=== PATIENT | female | born 1945 | race Caucasian/White ===

== ENCOUNTER → 2016-12-30 | Outpatient (CLI) | payer MEDICARE ==
--- NOTE | 2016-12-31 14:25 | MM ---
Reason for exam: screening (asymptomatic). Last mammogram was performed 1 year and 8 months ago. History: Patient is postmenopausal. Taking estrogen for 13 years beginning at age 51. Physical Findings: A clinical breast exam by your physician is recommended on an annual basis and results should be correlated with mammographic findings. MG 3D Screening Mammo W/Cad Bilateral CC and MLO view(s) were taken. Prior study comparison: April 17, 2015, bilateral MG screening mammo w CAD. January 15, 2014, left diagnostic mammogram w/CAD. The breast tissue is heterogeneously dense. This may lower the sensitivity of mammography. Finding: There are typically benign calcifications in both breasts. No significant changes in finding since April 17, 2015 and January 15, 2014. ASSESSMENT: Benign, BI-RAD 2 RECOMMENDATION: Routine screening mammogram of both breasts in 1 year.
== END ==
LOC: RADMAMWWP 11:10
PROVIDERS: ATTEND Obstetrics & Gynecology
DX: Z12.31 Encounter for screening mammogram for malignant neoplasm of breast (principal)
CPT/HCPCS: 77063; G0202

== ENCOUNTER → 2019-11-02 | Outpatient (CLI) | payer MEDICARE ==
--- NOTE | 2019-11-06 09:22 | MM ---
Reason for exam: screening (asymptomatic). Last mammogram was performed 2 years and 10 months ago. History: Patient is postmenopausal. Taking estrogen for 13 years beginning at age 51. Physical Findings: A clinical breast exam by your physician is recommended on an annual basis and results should be correlated with mammographic findings. MG 3D Screening Mammo W/Cad Bilateral CC and MLO view(s) were taken. Prior study comparison: December 30, 2016, bilateral MG 3d screening mammo w/cad. April 17, 2015, bilateral MG screening mammo w CAD. The breast tissue is heterogeneously dense. This may lower the sensitivity of mammography. Dense subareolar tissues on a background of scattered densities. Grouped calcifications associated with the density on the left is unchanged. No significant changes when compared with prior studies. ASSESSMENT: Benign, BI-RAD 2 RECOMMENDATION: Routine screening mammogram of both breasts in 1 year.
== END ==
LOC: RADMAMWWP 13:28
PROVIDERS: ATTEND Family Medicine
DX: Z12.31 Encounter for screening mammogram for malignant neoplasm of breast (principal)
CPT/HCPCS: 77063; 77067

== ENCOUNTER → 2021-08-29 | Outpatient (CLI) | payer MEDICARE ==
--- NOTE | 2021-09-01 13:43 | MM ---
Reason for exam: screening (asymptomatic). Last mammogram was performed 1 year and 10 months ago. History: Patient is postmenopausal. Took hormonal contraceptives for 5 years. Took estrogen for 13 years beginning at age 51. Physical Findings: A clinical breast exam by your physician is recommended on an annual basis and results should be correlated with mammographic findings. MG 3D Screening Mammo W/Cad Bilateral CC and MLO view(s) were taken. Prior study comparison: November 02, 2019, bilateral MG 3d screening mammo w/cad. December 30, 2016, bilateral MG 3d screening mammo w/cad. April 17, 2015, bilateral MG screening mammo w CAD. There are scattered fibroglandular densities. Increasing regional subareolar left breast calcifications. Additional magnification views recommended. ASSESSMENT: Incomplete: need additional imaging evaluation, BI-RAD 0 RECOMMENDATION: Special view mammogram of the left breast. (magnification) [facility] will attempt to contact patient to return for supplemental views.
== END | disposition home or self-care (01) ==
LOC: RADMAMWWP 14:58
PROVIDERS: ATTEND Family Medicine
DX: Z12.31 Encounter for screening mammogram for malignant neoplasm of breast (principal); Z78.0 Asymptomatic menopausal state
CPT/HCPCS: 77063; 77067

== ENCOUNTER → 2021-09-03 | Outpatient (CLI) | payer MEDICARE ==
--- NOTE | 2021-09-04 10:22 | MM ---
Reason for exam: additional evaluation requested from abnormal screening. Last mammogram was performed less than 1 month ago. History: Patient is postmenopausal. Took hormonal contraceptives for 5 years. Took estrogen for 13 years beginning at age 51. Physical Findings: Nurse did not find any significant physical abnormalities on exam. MG 3D Work Up W/Cad LT CC with magnification, LM with magnification, and ML view(s) were taken of the left breast. Prior study comparison: August 29, 2021, bilateral MG 3d screening mammo w/cad. November 02, 2019, bilateral MG 3d screening mammo w/cad. There are scattered fibroglandular densities. 12 o'clock central anterior left breast microcalcifications, some punctate and some heterogeneous. Biopsy recommended. These results were verbally communicated with the patient and result sheet given to the patient on 09/03/21. ASSESSMENT: Suspicious, BI-RAD 4 RECOMMENDATION: Stereotactic core biopsy of the left breast. Called Dr. Toney office with mammographic findings. Per office, patient to call next week for appointment date and time. Biopsy scheduled for 09/15/21 at 8:00. PRELIMINARY REPORT CALLED AND FAXED TO DR. TONEY ON 09/04/21.
== END | disposition home or self-care (01) ==
LOC: RADMAMWWP 08:57
PROVIDERS: ATTEND Family Medicine
DX: R92.1 Mammographic calcification found on diagnostic imaging of breast (principal); Z78.0 Asymptomatic menopausal state
CPT/HCPCS: 77065; G0279; 77061

== ENCOUNTER → 2021-09-15 | Day surgery (SDC) | payer MEDICARE ==
[2021-09-15 09:03] VITALS: BP 121/74; PULSE 52; RESP 16; TEMP 97.7
--- NOTE | 2021-09-15 19:04 | MM ---
EXAMINATION TYPE: MG stereo VAD BX LT DATE OF EXAM: 09/15/2021 COMPARISON: 09/03/2021, 08/29/2021 CLINICAL HISTORY: 75-year-old female referred for stereotactic core needle biopsy of left breast microcalcifications TECHNIQUE: Stereotactic guided core biopsy of the left breast. FINDINGS: The procedure of stereotactic guided core biopsy was explained to the patient. Benefits, alternatives, and risks were discussed. An informed consent was then obtained. The 12:00 left breast microcalcifications were identified and targeted biopsy. [facility]. Shortness pathway was a CC from above approach. I performed the localization followed by the remainder of the procedure. A vacuum assisted biopsy gun was used to obtain 5 core samples. The patient tolerated the procedure well without any immediate complication. The patient was kept in the radiology department for short stay after the procedure and then discharged home in stable condition. Targeted calcifications are identified in specimen mammogram. Post biopsy mammogram shows the clip to appear in satisfactory position relative to the targeted area of concern on the preprocedure images. IMPRESSION: SUCCESSFUL, UNCOMPLICATED STEREOTACTIC GUIDED CORE BIOPSY OF INDETERMINATE 12:00 LEFT BREAST MICROCALCIFICATIONS. FULL PATHOLOGY RESULTS TO FOLLOW. Pathology Results: Malignant LEFT BREAST, STEREOTACTIC CORE BIOPSY: Microinvasive well differentiated ductal carcinoma, focal flat epithelial atypia (FEA/ADH) with calcifications and background fibrocystic changes. See Surgical Pathology Cancer Case Summary and Comment. Recommendation Surgical consult of the left breast. A punctate residual calcification remains to confirm biopsy site. MTDD
== END ==
LOC: RADMAMWWP 06:58
PROVIDERS: ATTEND Family Medicine
DX: N60.12 Diffuse cystic mastopathy of left breast (principal)
CPT/HCPCS: 88305; 88342; 88341; 19081; A4648; J2001

== ENCOUNTER → 2022-04-02 | Outpatient (CLI) | payer MEDICARE ==
--- NOTE | 2022-04-02 23:02 | BD ---
EXAMINATION TYPE: Axial Bone Density DATE OF EXAM: 04/02/2022 COMPARISON: NONE CLINICAL HISTORY: 76 years year old Female. ICD-10 CODE: N95.1 POST MENOPAUSAL SYMPTOMS Height: 58 IN Weight: 148 LBS RISK FACTORS HISTORY OF: Active: LIMITED Postmenopausal woman: TOTAL HYST AGE 52 Take estrogen and/or progesterone medications: NOT NOW How long: TOOK FOR 2 YEARS Lost more than 2 inches in height since high school: YES 3" MEDICATIONS: Additional Medications: LIPITOR, MULTI VIT, TUMERIC, GLUCOSAMINE CHONDROITIN Additional History: BREAST CANCER EXAM MEASUREMENTS: Bone mineral densitometry was performed using the Tasqe System. Bone mineral density as measured about the Lumbar spine is: ----- L1-L4(G/cm2): 1.145 T Score Values are as follows: ----- L1: 1.1 ----- L2: -0.3 ----- L3: -0.4 ----- L4: -1.6 ----- L1-L4: -0.3 Bone mineral density BASELINE Bone mineral density about the R hip (g/cm2): 0.867 Bone mineral density about the L hip (g/cm2): 1.008 T Score values are as follows: -----R Neck: -1.2 -----L Neck: -0.2 -----R Total: -1.3 -----L Total: -0.7 Bone mineral density BASELINE FRAX%s: The graph provided illustrates a 9.9 chance for a major osteoporotic fx and a 1.6 chance for the hips probability for fx in 10 years time. IMPRESSION: Osteopenia (T Score between -2.5 and -1). There is slightly increased risk of fracture and the patient may be considered for treatment. Re-Screen 2-5 years. NOTE: T-SCORE=SD OF THE YOUNG ADULT MEAN.
== END | disposition home or self-care (01) ==
LOC: RADBDWWP 14:38
PROVIDERS: ATTEND Internal Medicine Hematology & Oncology
DX: M85.89 Other specified disorders of bone density and structure, multiple sites (principal); Z78.0 Asymptomatic menopausal state
CPT/HCPCS: 77080

== ENCOUNTER → 2022-09-14 | Outpatient (CLI) | payer MEDICARE ==
--- NOTE | 2022-09-15 11:55 | MM ---
Reason for Exam: Screening (asymptomatic). Last mammogram was performed 1 year(s) and 1 month(s) ago. Patient History: Menarche at age 14. First Full-Term at age 31. Left ovary removed at age 51. Right ovary removed at age 51. Hysterectomy at age 51. Postmenopausal. Breast cancer, left, age 75. Estrogen for 13 years from age 51 until age 64. Patient used Hormonal Contraceptives for 5 years. 11/2021, MG pre op needle loc LT - 2 on the Left side. 09/15/2021, Malignant Core Biopsy on the left side. Prior Study Comparison: 11/02/2019 Bilateral Screening Mammogram, [facility]. 08/29/2021 Bilateral Screening Mammogram, [facility]. 09/03/2021 Left Diagnostic Mammogram, [facility]. Tissue Density: The breast tissue is heterogeneously dense. This may lower the sensitivity of mammography. Findings: Analyzed By CAD. Loosely grouped tiny benign-appearing round calcifications are redemonstrated bilaterally. There is new biopsy clip and distortion with surgical clips anteriorly in the left breast. There is no suspicious new group of microcalcifications or new suspicious mass in either breast. Overall Assessment: Probably benign, BI-RAD 3 Management: Diagnostic Mammogram of the left breast in 6 months. Current left breast mammogram serves as new baseline after treatment for neoplasm September 2021. Precautionary six-month follow-up advised on the left. Electronically signed and approved by: Doc Guerin M.D.
== END | disposition home or self-care (01) ==
LOC: RADMAMWWP 16:07
PROVIDERS: ATTEND Family Medicine
DX: Z12.31 Encounter for screening mammogram for malignant neoplasm of breast (principal)
CPT/HCPCS: 77063; 77067

== ENCOUNTER → 2023-03-24 | Outpatient (CLI) | payer MEDICARE ==
--- NOTE | 2023-03-24 09:23 | MM ---
Reason for Exam: Hx of breast cancer, conservation therapy. Last screening mammogram was performed 6 month(s) ago. Patient History: Menarche at age 14. First Full-Term at age 31. Left ovary removed at age 51. Right ovary removed at age 51. Hysterectomy at age 51. Postmenopausal. Breast cancer, left, age 75. Estrogen for 13 years from age 51 until age 64. Patient used Hormonal Contraceptives for 5 years. 11/2021, MG pre op needle loc LT - 2 on the Left side. 09/15/2021, Malignant Core Biopsy on the left side. Tissue Density: There are scattered fibroglandular densities. Findings: Analyzed By CAD. Left breast posttreatment changes. Multiple surgical clips are seen in the axilla and breast itself. No new suspicious masses, calcifications or distortions. Overall Assessment: Benign, BI-RAD 2 Management: Screening Mammogram of both breasts in 1 year. Results were given to the patient verbally at the time of exam. Patient should continue monthly self-breast exams. A clinical breast exam by your physician is recommended on an annual basis. This exam should not preclude additional follow-up of suspicious palpable abnormalities. Note on Crys scores and lifetime risk: 1. A Crys score greater than 3% is considered moderate risk. If this is the case, consider specialist referral to assess eligibility for a risk reducing agent. 2. If overall lifetime risk for the development of breast cancer is 20% or higher, the patient may qualify for future screening with alternating mammogram and breast MRI. Electronically signed and approved by: Benitez Nathan DO
== END | disposition home or self-care (01) ==
LOC: RADMAMWWP 08:52
PROVIDERS: ATTEND Internal Medicine Hematology & Oncology
DX: C50.112 Malignant neoplasm of central portion of left female breast (principal); Z78.0 Asymptomatic menopausal state; Z85.3 Personal history of malignant neoplasm of breast; Z90.721 Acquired absence of ovaries, unilateral
CPT/HCPCS: 77066; G0279; 77062

== ENCOUNTER → 2023-11-26 | Outpatient (CLI) | payer MEDICARE ==
[2023-11-26 14:59] LABS: Partial Thromboplastin Time 24.2 sec (22.0-30.0); Prothrombin Time 10.6 sec (10.0-12.5)
[2023-11-26 18:36] LABS: Basophils # (A) 0.07 X 10*3/uL (0.00-0.10); Basophils % (A) 0.8 %; Eosinophils # (A) 0.35 X 10*3/uL (0.04-0.35); Eosinophils % (A) 3.9 %; HCT 44.4 % (37.2-50.0); HGB 14.7 g/dL (12.0-17.0); Lymphocytes # (A) 3.32 X 10*3/uL (0.90-5.00); Lymphocytes % (A) 36.7 %; MCH 28.6 pg (27.0-32.0); MCHC 33.1 g/dL (32.0-37.0); MCV 86.4 FL (80.0-97.0); Mean Platelet Volume 10.7 FL (9.5-12.2); Monocytes # (A) 0.74 X 10*3/uL (0.20-1.00); Monocytes % (A) 8.2 %; NRBC Per 100 WBC 0 X 10*3/uL (0.00-0.01); Neutrophils # (A) 4.54 X 10*3/uL (1.80-7.70); Neutrophils % (A) 50.2 %; Platelet Count 367 X 10*3/uL (140-440); RBC 5.14 X 10*6/uL (4.10-5.60); RDW 16.2 % (11.5-14.5); WBC 9.04 X 10*3/uL (4.50-10.00)
[2023-11-26 18:51] LABS: ALT 18 U/L (8-49); AST 17 U/L (13-35); Albumin 4.5 g/dL (3.8-4.9); Albumin/Globulin Ratio 1.73 Ratio (1.60-3.17); Alkaline Phosphatase 81 U/L (41-126); Carbon Dioxide 24.5 mmol/L (21.6-31.8); Chloride 103 mmol/L (96-109); Globulin 2.6 g/dL (1.6-3.3); Glucose 84 mg/dL (70-110); Potassium 4.6 mmol/L (3.5-5.5); Sodium 139 mmol/L (135-145); Total Bilirubin 0.3 mg/dL (0.3-1.2); Total Protein 7.1 g/dL (6.2-8.2)
== END | disposition home or self-care (01) ==
LOC: LABPAT 13:47
PROVIDERS: ATTEND Orthopaedic Surgery
DX: Z01.818 Encounter for other preprocedural examination (principal); I44.7 Left bundle-branch block, unspecified; M16.11 Unilateral primary osteoarthritis, right hip; Z22.322 Carrier or suspected carrier of Methicillin resistant Staphylococcus aureus; R94.31 Abnormal electrocardiogram [ECG] [EKG]
CPT/HCPCS: 80053; 85025; 85610; 85730; 86850; 86900; 86901; 87070; 93005

== ENCOUNTER 2023-12-07 05:40 | Observation (INO) | payer MEDICARE ==
[~2023-12-07 05:40] MED LIST: LIDOCAINE 1% (10MG/ML) FOR IV START INTRADERMA PRN; TRANEXAMIC 1,000 MG/100ML-NACL 1,000 MG in SALINE 1 100ML.BAG IVPB PRN
[2023-12-07] MEDS: GABAPENTIN 300 MG CAP PO PRN (06:27)
[2023-12-07] MEDS: ONDANSETRON 4 MG/2 ML VIAL IVP ONE (06:27)
[2023-12-07] MEDS: MELOXICAM 7.5 MG TAB PO PRN (06:27)
[2023-12-07] MEDS: ACETAMINOPHEN TAB 500 MG TAB PO PRN (06:27)
[2023-12-07] MEDS: LACTATED RINGERS 1,000 ML IV SCH (06:27)
[2023-12-07] MEDS: MIDAZOLAM 2 MG/2 ML VIAL IVP ONE (06:35)
[2023-12-07] MEDS: fentaNYL (PF) 50 MCG/ML 2 ML AMP IVP ONE (06:41)
[2023-12-07] MEDS ORDERED: PHENYLEPHRINE-0.9% NACL SYG 1,000 MCG/10 ML SYRINGE ONE (06:53)
[2023-12-07] MEDS ORDERED: TRANEXAMIC 1,000 MG/100ML-NACL PREMIX BAG ONE (06:53)
[2023-12-07] MEDS ORDERED: ePHEDrine 50 MG/ML 1 ML VIAL ONE (06:53)
[2023-12-07] MEDS ORDERED: ROPIVACAINE 5 MG/ML 30 ML VIAL ONE (06:53)
[2023-12-07] MEDS ORDERED: PROPOFOL 10 MG/ML 20 ML VIAL IV ONE (06:53)
[2023-12-07] MEDS ORDERED: MIDAZOLAM 2 MG/2 ML VIAL ONE (06:53)
[2023-12-07] MEDS ORDERED: fentaNYL (PF) 50 MCG/ML 2 ML AMP ONE (06:53)
[2023-12-07] MEDS ORDERED: DEXAMETHASONE SOD PHOSPHATE 4 MG/ML 1 ML VIAL ONE (06:53)
[2023-12-07] MEDS: ceFAZolin 1,000 MG in SODIUM CHLORIDE 0.9% 1,000 ML IRRIGATION ONE (06:58)
[2023-12-07] MEDS ORDERED: HYDROmorphone 0.5 MG/0.5 ML SYRINGE IVP PRN ×3 (07:00→08:42)
[2023-12-07] MEDS: ROPIVACAINE 5 MG/ML 30 ML VIAL MISCELLANE ONE ×2 (07:32→08:07)
--- NOTE | 2023-12-07 08:17 | P.OP ---
Date of Procedure: 12/07/23 Preoperative Diagnosis: Severe osteoarthritis right hip Postoperative Diagnosis: Severe osteoarthritis right hip Procedure(s) Performed: Right total hip arthroplasty with a direct anterior approach Implants: [employer] Polarstem standard size 2 with a collar [employer] R3, 3 hole hemispherical acetabular shell, 52 mm [employer] Reflection 6.5 mm cancellus screw, 20 mm 2 [employer] R3, XLPE 20 acetabular liner [employer] Oxinium femoral head 36 mm, -3 All components were press-fit. The articulation is Oxinium on polyethylene. Anesthesia: spinal Surgeon: Chas May Senior Programmer #1: Alejandra Lopez Estimated Blood Loss (ml): 400 Pathology: none sent Condition: stable Disposition: PACU Indications for Procedure: After failure of conservative treatment we discussed the surgical and nonsu rgical treatment options at length. Patient wishes to proceed with a total hip arthroplasty with a direct anterior approach. Complications specific to this procedure were discussed at length, including but not limited to infection, leg length discrepancy, dislocation, nerve injury, and fracture. Covid-19 was also discussed at length with the patient, and they are aware of the current policies and procedures. The patient was given the option of delaying surgery, but they elect to proceed knowing these risks. Patient is aware of all these complications and informed consent was obtained Operative Findings: The operative findings are consistent with severe osteoarthritis of the right hip Description of Procedure: The patient was seen and evaluated in the preoperative area and the consent was reviewed. The operative site was marked with a skin marker. The patient verified the procedure and operative site. A NARESH block was placed by anesthesia in the preoperative area. The patient was then brought to the operating room and given preoperative antibiotics intravenously. 1 g of Tranexamic acid was also given intravenously. A spinal anesthetic was administered by the anesthesia department. The patient was then placed on the Milan table with the bony prominences well-padded. The hip area was then prepped with a ChloraPrep solution and draped in the usual sterile fashion. A universal timeout was then performed, which confirmed the patient's name, surgical site, ALLERGIES, and procedure being performed on the consent. Next the incision site was located at 1 cm distal and 4 cm lateral to the anterior superior iliac spine. The skin and subcutaneous tissues were sharply incised. Incision was carefully dissected down to the fascia overlying the tensor fascia edi muscle. This fascia was then incised in line with the muscle fibers. Care was taken to stay laterally in order to avoid injuring the lateral femoral cutaneous nerve. Next, using blunt finger dissection, the tensor fascia edi muscle was dissected off its investing fascia. The muscle was then carefully retracted laterally with a cobra retractor over the lateral neck of the femur. Next, the circumflex vessels were identified and cauterized using the Aquamantis device. The anterior hip capsule was then exposed. The capsule was then opened and an inverted T fashion. The retractors were then placed intracapsularly. The retractors were maintained intracapsular throughout the procedure. The proximal femur was then visualized. Fluoroscopic x-rays were then taken in order to evaluate the preoperative leg lengths. A small amount of traction was placed on the leg. The femoral neck was then osteotomized at the appropriate level above the lesser trochanter. A small wedge of bone was then removed from the remaining femoral head. Next, using a corkscrew the femoral head was removed from the acetabulum. On gross visual inspection, the femoral head had complete loss of articular cartilage and multiple periarticular osteophytes. The femoral head was then measured. Attention was then turned to the acetabulum. The acetabulum was exposed and any remaining labrum was excised. Sequential reaming of the acetabulum was performed using fluoroscopic guidance until there was a good bed of bleeding cancellus bone. When the appropriate size was reached, a trial was then placed. The position and fit of the trial was checked with fluoroscopy. The trial was then removed. Then, using fluoroscopic guidance, the final implant was impacted at 20 of anteversion and 40 of abduction, and fully seated in the acetabulum. 2 screws were then placed in the acetabulum. Again fluoroscopy was used to check position of the screws. Next, the liner was then impacted, with a 20 elevated liner located in the anterior superior quadrant. Component locking was confirmed. Attention was then directed to the femur. With the aid of the Milan table, the femur was externally rotated to approximately 130, extended, and adducted under the opposite leg. A side hook was then placed under the proximal femur, and the side hook elevator was used to elevate the proximal femur while releasing the capsule. Retractors were then placed. A capsular release was performed, as well as a release of the conjoined tendon, which afforded excellent v isualization of the proximal femur. Next, a box osteotome was used to lateralize the proximal femur. A wood handler was then used to locate the femoral canal. Sequential broaching was then performed with appropriate size which afforded excellent fixation in the proximal femur. A trial was then placed with appropriate head and neck, and the hip was gently reduced with the aid of the Milan table. Fluoroscopy was then used to check position of the components, as well as to evaluate the leg lengths and offset. The leg lengths and offset were measured as closely as possible to ensure stability of the hip. The hip was then gently dislocated and the trials were then removed. Final implants were then impacted and the hip was again reduced. Final fluoroscopic x-rays confirmed that the components were in anatomic position. The leg lengths and offset were measured and were found to coincide with the trial measurements. The hip was also taken through range of motion, and found to be stable. The hip was then copiously irrigated with antibiotic solution with pulsatile lavage. The hip was then irrigated with Irrisept solution. The soft tissues were then injected with a ropivacaine solution. A second dose of 1 g of Tranexamic acid was also given intravenously. The fascia was then closed with 2-0 strata fix suture. The subcutaneous tissue was closed with 3-0 Vicryl. The subcuticular tissue was closed with 3-0 strata fix suture. The skin was then closed with Exofin skin glue. After the glue and dried, and Optifoam silver impregnated dressing was applied. The patient was t hen transferred to the recovery room in stable condition. The payroll assistant AUGUSTUS Bruce was required due to the complexity of surgery, and the need for skilled medical surgical tech for positioning, draping, exposure, retraction, and closure of the wound.
--- NOTE | 2023-12-07 08:31 | XR ---
EXAMINATION TYPE: XR Hip Limited RT DATE OF EXAM: 12/07/2023 COMPARISON: NONE HISTORY: Postop TECHNIQUE: 5 view submitted. FINDINGS: There is postsurgical change compatible hip replacement surgery. IMPRESSION: 1. Postoperative change.
--- NOTE | 2023-12-07 08:35 | P.ANPRN ---
Procedure Note - Anesthesia - Nerve Block Performed Right Sanchez Single Time Out Performed: Yes Date of Procedure: 12/07/23 Procedure Start Time: 06:34 Procedure Stop Time: 06:42 Location of Patient: PreOp Indication: Acute Post-Operative Pain, Requested by Surgeon Sedation Type: Sedate with meaningful contact maintained Preparation: Sterile Prep Position: Supine Needle Types: Pajunk Ultrasound used to visualize needle placement: Yes Ultrasound used to observe medication spread: Yes Injectate: 0.5% Ropivacaine (see comment for volume) (25 ml + 4 mg Dexamethasone) Blood Aspirated: No Pain Paresthesia on Injection Noted: No Resistance on Injection: Normal Image Stored and Saved: Yes Events: Uneventful and Well Tolerated
[2023-12-07] MEDS ORDERED: NALOXONE 0.4 MG/ML 1 ML VIAL IV PRN (08:42)
[2023-12-07] MEDS ORDERED: ONDANSETRON 4 MG/2 ML VIAL IVP PRN (08:42)
[2023-12-07] MEDS ORDERED: MAGNESIUM HYDROXIDE 2,400 MG/30 ML CUP PO PRN (08:42)
[2023-12-07] MEDS: LACTATED RINGERS 1,000 ML IV ONE (09:15)
--- NOTE | 2023-12-07 09:17 | FL ---
EXAMINATION TYPE: FL guidance operating room DATE OF EXAM: 12/07/2023 HISTORY: Fluoroscopy time Total dose area product (DAP) in uGy*m?, mGy*cm? (or similar): 2.8372 IMPRESSION: 1. Fluoroscopy time.
--- NOTE | 2023-12-07 09:27 | XR ---
EXAMINATION TYPE: XR Hip Limited RT DATE OF EXAM: 12/07/2023 COMPARISON: NONE HISTORY: POST-OP RIGHT HIP TECHNIQUE: One view submitted. FINDINGS: There is postsurgical change compatible hip replacement surgery. IMPRESSION: 1. Postoperative change.
[2023-12-07] MEDS ORDERED: ALBUTEROL NEBULIZED 2.5 MG/3 ML INHALATION PRN (13:46)
[2023-12-07] MEDS ORDERED: MONTELUKAST 10 MG TAB PO PRN (13:46)
[2023-12-07] MEDS: droPERidol 5 MG/2 ML VIAL IVP ONE (14:54)
[2023-12-07] MEDS: SODIUM CHLORIDE 0.9% 1,000 ML IV SCH (14:54)
[2023-12-07] MEDS: HYDROcodone/APAP 7.5-325MG 1 EACH TAB PO PRN (15:40)
--- NOTE | 2023-12-07 17:17 | P.CONS ---
History of Present Illness - Reason for Consult Consult date: 12/07/23 Medical management Requesting physician: Chas May - Chief Complaint Right hip surgery - History of Present Illness This is a pleasant 78-year-old patient, follows with Dr. Klaus Lowe. Chronic stable medical conditions include asthma, hyperlipidemia, osteoarthritis, history of breast cancer, urine incontinence, constipation. Patient has undergone right total hip arthroplasty. Pain controlled. No nausea vomiting. at the bedside. No chest pain or shortness of breath. Denies any prior cardiac history. Review of systems: GEN.: Tired EYES: None HEENT: None NECK: None RESPIRATORY: None CARDIOVASCULAR: None GASTROINTESTINAL: None GENITOURINARY: Urine incontinence] MUSCULOSKELETAL: Joint pains LYMPHATICS: None HEMATOLOGICAL: None PSYCHIATRY: None NEUROLOGICAL: None Social history: Stopped smoking 35 years ago. Lives with her . Use CBD tincture. No alcohol. Physical examination: VITAL SIGNS: 97.6, 98, 18, 106/67, 91% room air GENERAL: BMI 30.1, reclining bed awake not in distress. EYES: Pupils equal. Conjunctiva jorge l. HEENT: External appearance of nose and ears normal, oral cavity grossly normal. NECK: JVD not raised; masses not palpable. HEART: First and second heart sounds are normal; no edema. LUNGS: Respiratory rate normal; clear to auscultation. ABDOMEN: Soft, nontender, liver spleen not palpable, no masses palpable. PSYCH: Alert and oriented x3; mood and affect jorge l. MUSCULOSKELETAL:No Clubbing/cyanosis;muscles-grossly intact. OA. Dressing over the incision site NEUROLOGICAL: Cranial nerves grossly intact; no facial asymmetry, power and sensation grossly intact. LYMPHATICS: No lymph nodes palpable in the axilla and neck INVESTIGATIONS, reviewed in the clinical context: White count 9.0 hemoglobin 14.7 platelets 367 sodium 139 potassium 4.6 creatinine 0.4 Assessment and plan: -Right total hip anterior arthroplasty Aspirin for DVT prophylaxis. IV cefazolin for infection prophylaxis. Pain control -Intermittent asthma Singulair. Ventolin HFA as needed -Chronic intermittent constipation Laxatives as needed -Primary osteoarthritis Pain medications as needed -Hyperlipidemia Lipitor -Chronic urine incontinence Care was discussed with the patient and at the bedside. Questions answered. Thank Dr. May Past Medical History Past Medical History: Asthma, Cancer, Hyperlipidemia, Osteoarthritis (OA) Additional Past Medical History / Comment(s): hiatal hernia, hx breast cancer, urinary incontinence. constipation issues History of Any Multi-Drug Resistant Organisms: None Reported Past Surgical History: Appendectomy, Hysterectomy, Orthopedic Surgery, Tubal Ligation Additional Past Surgical History / Comment(s): Right knee placement. A&P repair, breast biopsy and four lymph nodes, removed the cancer. colonoscopy Past Anesthesia/Blood Transfusion Reactions: No Reported Reaction Past Psychological History: No Psychological Hx Reported Smoking Status: Former smoker Past Alcohol Use History: None Reported Additional Past Alcohol Use History / Comment(s): quit smoking 35yrs ago. Past Drug Use History: Marijuana Additional Drug Use History / Comment(s): uses CBD tincture. pt aware not to use 24 hrs before procedure. - Past Family History Mother Additional Family Medical History / Comment(s): 91 yrs old when she . borderline DB. pacemaker Medications and Allergies Home Medications Medication Instructions Recorded Confirmed Type Albuterol Inhaler [Ventolin Hfa 1 puff INHALATION DAILY PRN 09/05/21 12/07/23 History Inhaler] Atorvastatin [Lipitor] 10 mg PO HS 09/05/21 12/07/23 History Calcium Carbonate/Vitamin D3 1 tab PO DAILY 09/05/21 12/07/23 History [Calcium 500 mg Chewable Tablet] Glucosamine-Chondr 500-400Mg 1 each PO BID 09/05/21 12/07/23 History Montelukast [Singulair] 10 mg PO DAILY PRN 09/05/21 12/07/23 History Multivitamins, Thera [Multivitamin 1 tab PO DAILY 09/05/21 12/07/23 History (formulary)] Acetaminophen [Tylenol Arthritis] 1,300 mg PO BID 11/30/23 12/07/23 History Fexofenadine HCl [Alondra Allergy] 180 mg PO DAILY PRN 11/30/23 12/07/23 History Ibuprofen [Motrin Ib] 200 mg PO DIRECTED PRN 11/30/23 12/07/23 History Aspirin 325 mg PO BID #60 tab 12/07/23 Rx HYDROcodone/APAP 7.5-325MG [Ancram 1 - 2 tab PO Q6H PRN #32 tab 12/07/23 Rx 7.5-325] Sennosides [Senokot] 2 tab PO DAILY PRN #60 tablet 12/07/23 Rx Allergies Allergy/AdvReac Type Severity Reaction Status Date / Time nickel Allergy Rash/Hives Verified 12/07/23 06:27 almond AdvReac rash if Verified 12/07/23 06:27 eaten in large volumes. Penicillins AdvReac Nausea & Verified 12/07/23 06:27 Vomiting & Diarrhea Physical Exam Vitals: Vital Signs Temp Pulse Resp BP Pulse Ox 12/07/23 13:10 97.6 F 98 18 106/67 91 L 12/07/23 12:37 101 H 18 110/63 93 L 12/07/23 12:07 93 18 105/60 93 L 12/07/23 11:37 85 18 95/52 93 L 12/07/23 11:07 82 18 103/57 94 L 12/07/23 10:37 81 16 97/54 97 12/07/23 10:22 66 18 108/54 96 12/07/23 10:07 76 18 99/51 96 12/07/23 09:52 57 L 18 96/49 96 12/07/23 09:37 68 16 101/49 94 L 12/07/23 09:22 61 16 105/48 93 L 12/07/23 09:07 60 18 108/48 95 12/07/23 08:52 58 L 16 109/48 99 12/07/23 08:37 97.8 F 70 16 102/52 98 12/07/23 06:50 82 16 118/56 96 12/07/23 06:30 98.5 F 75 16 146/72 96 Intake and Output 12/07/23 12/07/23 12/07/23 06:59 14:59 22:59 Intake Total 551 1050 Output Total 400 Balance 551 650 Intake: IV 551 1050 Output: Estimated Blood Loss 400 Other: Weight 67.6 kg 67.6 kg
[2023-12-07] MEDS: ASPIRIN 325 MG TAB PO SCH (20:31)
[2023-12-07] MEDS: SENNOSIDES-DOCUSATE SODIUM 1 EACH TAB PO SCH (20:32)
[2023-12-07] MEDS: ATORVASTATIN 10 MG TAB PO SCH (20:32)
[2023-12-07] MEDS: HYDROmorphone 0.5 MG/0.5 ML SYRINGE IVP PRN (20:32)
[2023-12-08 03:41] VITALS: TEMP 97.7
[2023-12-08] MEDS: MULTIVITAMINS, THERA 1 EACH TAB PO SCH (07:54)
[2023-12-08 08:07] VITALS: BP 102/62; PULSE 53; RESP 16
[2023-12-08 08:48] LABS: Basophils # (A) 0.02 X 10*3/uL (0.00-0.10); Basophils % (A) 0.2 %; Eosinophils # (A) 0.03 X 10*3/uL (0.04-0.35); Eosinophils % (A) 0.3 %; HCT 29.8 % (37.2-50.0); HGB 9.9 g/dL (12.0-17.0); Lymphocytes # (A) 2.43 X 10*3/uL (0.90-5.00); Lymphocytes % (A) 24.3 %; MCH 29.5 pg (27.0-32.0); MCHC 33.2 g/dL (32.0-37.0); MCV 88.7 FL (80.0-97.0); Mean Platelet Volume 10.5 FL (9.5-12.2); Monocytes # (A) 1.13 X 10*3/uL (0.20-1.00); Monocytes % (A) 11.3 %; NRBC Per 100 WBC 0 X 10*3/uL (0.00-0.01); Neutrophils # (A) 6.35 X 10*3/uL (1.80-7.70); Neutrophils % (A) 63.5 %; Platelet Count 278 X 10*3/uL (140-440); RBC 3.36 X 10*6/uL (4.10-5.60); RDW 16.2 % (11.5-14.5)
--- NOTE | 2023-12-08 10:55 | P.DS ---
Providers Expected date of discharge: 12/08/23 Attending physician: Chas May Consults: 12/07/23 08:42 Consult Physician Routine Consulting Provider: Efrain Garcia Consult Reason/Comments: medical management Do you want consulting provider notified?: Yes Primary care physician: Klaus Lowe - Discharge Diagnosis(es) (1) Primary localized osteoarthritis of right hip Current Visit: Yes Status: Acute (2) Status post total hip replacement, right Current Visit: Yes Status: Acute Hospital Course: This is a 78-year-old female with known history of degenerative arthritis of the right hip. The patient presents for evaluation. After discussion and consideration patient elects to proceed with total hip arthroplasty with direct anterior approach. The patient is seen preoperatively by primary care physician and cleared for surgery. Patient is admitted to [facility] on 12/07/2023 for total hip arthroplasty with direct anterior approach. The procedure is performed without complication or sequelae. The patient is doing well postoperatively. Labs and vital signs are stable on day of discharge. On day of discharge patient's hip incision is healing well. There is minimal erythema. There is no drainage noted at this time. There is minimal soft tissue swelling to the hip and thigh. Patient has full foot and ankle motion without difficulty or pain. Neurovascular status to the lower extremity is intact. Patient is discharged to home in good condition. Please see med rec for accurate list of home medications. Patient Condition at Discharge: Good Plan - Discharge Summary Discharge Rx Participant: No New Discharge Prescriptions: New Sennosides [Senokot] 2 tab PO DAILY PRN #60 tablet PRN Reason: Constipation Aspirin 325 mg PO BID #60 tab HYDROcodone/APAP 7.5-325MG [[place] 7.5-325] 1 - 2 tab PO Q6H PRN #32 tab PRN Reason: Pain No Action Calcium Carbonate/Vitamin D3 [Calcium 500 mg Chewable Tablet] 1 tab PO DAILY Multivitamins, Thera [Multivitamin (formulary)] 1 tab PO DAILY Montelukast [Singulair] 10 mg PO DAILY PRN PRN Reason: Allergy Symptoms Albuterol Inhaler [Ventolin Hfa Inhaler] 1 puff INHALATION DAILY PRN PRN Reason: Dyspnea Atorvastatin [Lipitor] 10 mg PO HS Ibuprofen [Motrin Ib] 200 mg PO DIRECTED PRN PRN Reason: Pain Glucosamine-Chondr 500-400Mg 1 each PO BID Fexofenadine HCl [Alondra Allergy] 180 mg PO DAILY PRN PRN Reason: Allergy Symptoms Acetaminophen [Tylenol Arthritis] 1,300 mg PO BID Discharge Medication List Albuterol Inhaler [Ventolin Hfa Inhaler] 1 puff INHALATION DAILY PRN 09/05/21 [History] Atorvastatin [Lipitor] 10 mg PO HS 09/05/21 [History] Calcium Carbonate/Vitamin D3 [Calcium 500 mg Chewable Tablet] 1 tab PO DAILY 09/05/21 [History] Glucosamine-Chondr 500-400Mg 1 each PO BID 09/05/21 [History] Montelukast [Singulair] 10 mg PO DAILY PRN 09/05/21 [History] Multivitamins, Thera [Multivitamin (formulary)] 1 tab PO DAILY 09/05/21 [History] Acetaminophen [Tylenol Arthritis] 1,300 mg PO BID 11/30/23 [History] Fexofenadine HCl [Alondra Allergy] 180 mg PO DAILY PRN 11/30/23 [History] Ibuprofen [Motrin Ib] 200 mg PO DIRECTED PRN 11/30/23 [History] Aspirin 325 mg PO BID #60 tab 12/07/23 [Rx] HYDROcodone/APAP 7.5-325MG [[place] 7.5-325] 1 - 2 tab PO Q6H PRN #32 tab 12/07/23 [Rx] Sennosides [Senokot] 2 tab PO DAILY PRN #60 tablet 12/07/23 [Rx] Follow up Appointment(s)/Referral(s): [facility] [NON-STAFF] - As Needed Chas May DO [Doctor of Osteopathic Medicine] - 2 Weeks Activity/Diet/Wound Care/Special Instructions: Weightbearing as tolerated with walker. Leave dressing intact. Dressing may be removed by home care nurse or by patient in 7 days. Then change dressing twice daily until follow up. May shower with initial dressing intact and after removal. If dressing become saturated, please remove. Please take aspirin 325mg twice daily for 30 days to prevent blood clots. Recommend use of compression stockings daily until follow up to help prevent swelling and blood clots. May remove at night before sleeping. Please follow-up with [facility] in 2 weeks and call with any questions or concerns, . Discharge Disposition: HOME WITH HOME HEALTH SERVICES
[2023-12-08] MEDS: HYDROcodone/APAP 7.5-325MG 1 EACH TAB PO PRN (11:22)
[2023-12-08] MEDS: SODIUM FERRIC GLUCONAT-SUCROSE 125 MG in SODIUM CHLORIDE 0.9% 100 ML IVPB ONE (12:04)
--- NOTE | 2023-12-08 19:49 | P.PN ---
Progress Note - Text Progress Note Date: 12/08/23 - Chief Complaint Right hip surgery - History of Present Illness This is a pleasant 78-year-old patient, follows with Dr. Klaus Lowe. Chronic stable medical conditions include asthma, hyperlipidemia, osteoarthritis, history of breast cancer, urine incontinence, constipation. Patient has undergone right total hip arthroplasty. Pain controlled. No nausea vomiting. at the bedside. No chest pain or shortness of breath. Denies any prior cardiac history. December 08: Doing much better. Did ambulate. Pain controlled. Significant drop in hemoglobin. 14.7 was preop. 9.9 today. Will give 1 unit of IV Ferrlecit. Discussed with patient and . No chest pain or shortness of breath. Meds reviewed Social history: Stopped smoking 35 years ago. Lives with her . Use CBD tincture. No alcohol. Physical examination: VITAL SIGNS: 97.7, 53, 16, 102 x 82, 94% room air GENERAL: Sitting up in the chair, comfortable EYES: Pupils equal. Conjunctiva jorge l. HEENT: External appearance of nose and ears normal, oral cavity grossly normal. NECK: JVD not raised; masses not palpable. HEART: First and second heart sounds are normal; no edema. LUNGS: Respiratory rate normal; clear to auscultation. ABDOMEN: Soft, nontender, liver spleen not palpable, no masses palpable. PSYCH: Alert and oriented x3; mood and affect jorge l. MUSCULOSKELETAL:No Clubbing/cyanosis;muscles-grossly intact. OA. Dressing over the incision site INVESTIGATIONS, reviewed in the clinical context: December 08: White count 10 hemoglobin 9.9 platelets 278 White count 9.0 hemoglobin 14.7 platelets 367 sodium 139 potassium 4.6 cr eatinine 0.4 Assessment and plan: -Right total hip anterior arthroplasty Aspirin for DVT prophylaxis. IV cefazolin for infection prophylaxis. Pain control -Acute postprocedure blood loss anemia expected from surgery IV Ferrlecit x 1 dose. Oral iron twice daily for home. -Intermittent asthma Singulair. Ventolin HFA as needed -Chronic intermittent constipation Laxatives as needed -Primary osteoarthritis Pain medications as needed -Hyperlipidemia Lipitor -Chronic urine incontinence IV iron. Oral iron. For home. Discussed with patient. Thank Dr. May Past Medical History Past Medical History: Asthma, Cancer, Hyperlipidemia, Osteoarthritis (OA) Additional Past Medical History / Comment(s): hiatal hernia, hx breast cancer, urinary incontinence. constipation issues History of Any Multi-Drug Resistant Organisms: None Reported Past Surgical History: Appendectomy, Hysterectomy, Orthopedic Surgery, Tubal Ligation Additional Past Surgical History / Comment(s): Right knee placement. A&P repair, breast biopsy and four lymph nodes, removed the cancer. colonoscopy Past Anesthesia/Blood Transfusion Reactions: No Reported Reaction Past Psychological History: No Psychological Hx Reported Smoking Status: Former smoker Past Alcohol Use History: None Reported Additional Past Alcohol Use History / Comment(s): quit smoking 35yrs ago. Past Drug Use History: Marijuana Additional Drug Use History / Comment(s): uses CBD tincture. pt aware not to use 24 hrs before procedure.
== END 2023-12-08 14:14 | disposition home health service (06) ==
LOC: OR 05:40 → 4SSUR 08:35 → OR 12-08 10:07 → 4SSUR 12-08 10:07
PROVIDERS: ADMIT Orthopaedic Surgery; ATTEND Orthopaedic Surgery
DX: M16.11 Unilateral primary osteoarthritis, right hip (principal); M25.751 Osteophyte, right hip; G89.18 Other acute postprocedural pain; D62 Acute posthemorrhagic anemia; J45.20 Mild intermittent asthma, uncomplicated; K59.00 Constipation, unspecified; R32 Unspecified urinary incontinence; E78.5 Hyperlipidemia, unspecified; Z85.3 Personal history of malignant neoplasm of breast; Z87.891 Personal history of nicotine dependence; Z79.82 Long term (current) use of aspirin; Z79.899 Other long term (current) drug therapy; Z88.0 Allergy status to penicillin
CPT/HCPCS: 96376; 96365; 96366; 96367; 96375; 97161; 97166; 64447; 85025; 73501; 27130; G0378; C1776; J2250; J0690 ×3; J2405; J3010; J2916; J2795; J1170 ×2